=== PATIENT | male | born 1940 | race Caucasian/White ===

== ENCOUNTER 2021-11-04 07:40 | Outpatient (CLI) | payer MEDICARE, OTHER | END 2021-11-04 07:41 | disposition home or self-care (01) | LOC: CSHCT 07:40 | PROVIDERS: ATTEND Urology | DX: N20.0 Calculus of kidney (principal) | CPT/HCPCS: 74176 ==

== ENCOUNTER 2021-12-26 09:54 | Outpatient (CLI) | payer MEDICARE, OTHER ==
[2021-12-26 20:33] LABS: SARS-CoV-2 PCR by NAA Not Detected (NotDetected)
== END 2021-12-26 09:55 | disposition home or self-care (01) ==
LOC: CSHLAB 09:54
PROVIDERS: ATTEND Internal Medicine Pulmonary Disease
DX: Z01.812 Encounter for preprocedural laboratory examination (principal); Z20.822 Contact with and (suspected) exposure to COVID-19
CPT/HCPCS: U0003; U0005

== ENCOUNTER 2021-12-31 12:14 | Outpatient (CLI) | payer MEDICARE, OTHER | END 2021-12-31 12:15 | disposition home or self-care (01) | LOC: CSHCP 12:14 | PROVIDERS: ATTEND Internal Medicine Pulmonary Disease | DX: R05.8 Other specified cough (principal) | CPT/HCPCS: 94060; 94726; 94729; 94760 ==